=== PATIENT | male | born 1995 | race Caucasian/White ===

== ENCOUNTER 2023-11-03 20:01 | Emergency (ER) | payer BC, SELFPAY ==
[2023-11-03] VITALS (9 sets, daily range): BP systolic 121–164; BP diastolic 68–90; PULSE 85–110; RESP 20; TEMP 36.4; O2SAT 92–99; BMI 30.4
--- NOTE | 2023-11-03 20:10 | DI.RAD.S_ITS ---
PROCEDURE: XR FOREARM RT 2V INDICATIONS: fell and injured RUE TECHNIQUE: 2 views of the forearm were acquired. COMPARISON: None. FINDINGS: Bones: No fractures or dislocations. No suspicious bony lesions. Soft tissues: No suspicious soft tissue calcifications or masses. IMPRESSION: Right radius and ulna without definite fracture or dislocation. If there is persistent clinical concern for occult fracture given adequate mechanism of injury, consider repeat imaging in 10-14 days. Dictated by: Jostin Blair M.D. on 11/03/2023 at 21:16 Approved by: Jostin Blair M.D. on 11/03/2023 at 21:17
--- NOTE | 2023-11-03 20:10 | DI.RAD.S_ITS ---
PROCEDURE: XR HUMERUS RT 2V INDICATIONS: fell and injured RUE TECHNIQUE: 2 views of the humerus were acquired. COMPARISON: None. FINDINGS: Bones: No fractures or dislocations. No suspicious bony lesions. Soft tissues: No suspicious soft tissue calcifications. IMPRESSION: Right humerus without acute fracture or dislocation. If there is persistent clinical concern for occult fracture given adequate mechanism of injury, consider repeat imaging in 10-14 days. Dictated by: Jostin Blair M.D. on 11/03/2023 at 21:18 Approved by: Jostin Blair M.D. on 11/03/2023 at 21:19
--- NOTE | 2023-11-03 20:10 | DI.RAD.S_ITS ---
PROCEDURE: XR SHOULDER RT MIN 2V INDICATIONS: fell and injured RUE TECHNIQUE: 2 views of the shoulder were acquired. COMPARISON: None. FINDINGS: Bones: No fractures or dislocations. No suspicious bony lesions. Visualized ribs appear intact. Coracoclavicular and acromioclavicular intervals are maintained. Soft tissues: No suspicious soft tissue calcifications. IMPRESSION: No acute bony abnormality. If there is persistent clinical concern for occult fracture given adequate mechanism of injury, consider repeat imaging in 10-14 days. Dictated by: Jostin Blair M.D. on 11/03/2023 at 21:22 Approved by: Jostin Blair M.D. on 11/03/2023 at 21:23
--- NOTE | 2023-11-03 20:10 | DI.RAD.S_ITS ---
PROCEDURE: XR ELBOW RT MIN 3V INDICATIONS: fell and injured RUE TECHNIQUE: 3 views of the elbow were acquired. COMPARISON: None. FINDINGS: Bones: No fractures or dislocations. No suspicious bony lesions. Soft tissues: No elbow joint effusion. No suspicious soft tissue calcifications. IMPRESSION: No acute bony abnormality or significant joint effusion. If there is persistent clinical concern for occult fracture given adequate mechanism of injury, consider repeat imaging in 10-14 days. Dictated by: Jostin Blair M.D. on 11/03/2023 at 21:21 Approved by: Jostin Blair M.D. on 11/03/2023 at 21:22
--- NOTE | 2023-11-03 20:10 | DI.RAD.S_ITS ---
PROCEDURE: XR HAND RT MIN 3V INDICATIONS: fell and injured RUE TECHNIQUE: 3 views of the hand(s) acquired. COMPARISON: None. FINDINGS: Bones: No fractures or dislocations. Carpal bones are normally aligned. No suspicious bony lesions. Soft tissues: No suspicious soft tissue calcifications. IMPRESSION: No acute bony abnormality. If there is persistent clinical concern for occult fracture given adequate mechanism of injury, consider repeat imaging in 10-14 days. Dictated by: Jostin Blair M.D. on 11/03/2023 at 21:17 Approved by: Jostin Blair M.D. on 11/03/2023 at 21:18
--- NOTE | 2023-11-03 20:10 | DI.RAD.S_ITS ---
PROCEDURE: XR WRIST RT MIN 3V INDICATIONS: fell and injured RUE TECHNIQUE: 4 views of the wrist were acquired. COMPARISON: None. FINDINGS: Bones: No fractures or dislocations. No suspicious bony lesions. Scaphoid appears intact. Scapholunate interval is maintained. Soft tissues: No suspicious soft tissue calcifications. IMPRESSION: Right wrist without acute fracture or dislocation. If there is persistent clinical concern for occult fracture given adequate mechanism of injury, consider repeat imaging in 10-14 days. Dictated by: Jostin Blair M.D. on 11/03/2023 at 21:20 Approved by: Jostin Blair M.D. on 11/03/2023 at 21:21
--- NOTE | 2023-11-04 04:01 | ED_ITS ---
HPI - Extremity Injury (Upper) General Chief Complaint: Extremity Injury, Upper Stated Complaint: GLF Fall right side elbow and arm Time Seen by Provider: 11/03/23 20:48 Source: patient and family Mode of arrival: Ambulatory History of Present Illness HPI narrative: 28-year-old male with a right upper extremity injury after tripping while walking his dog. Fell onto the right arm, has pain in the right elbow wrist and hand, particularly with supination of the forearm. Injury occurred just prior to arrival. Related Data Home Medications Medication Instructions Recorded Confirmed No Known Home Medications 01/09/23 01/09/23 Allergies Allergy/AdvReac Type Severity Reaction Status Date / Time No Known Drug Allergies Allergy Unverified 01/09/23 14:05 Patient History Social History Smoking Status: Never smoker Smoking Status: Never smoker alcohol intake frequency: a few times a week Substance Use Type: does not use Exam Initial Vital Signs Initial Vital Signs: Vital Signs Temperature 97.5 F L 11/03/23 20:04 Pulse Rate 96 H 11/03/23 20:04 Respiratory Rate 20 11/03/23 20:04 Blood Pressure 164/75 H 11/03/23 20:04 Pulse Oximetry 98 11/03/23 20:04 Oxygen Delivery Method Room Air 11/03/23 20:04 Const General: No acute distress HENMT Head: normocephalic and atraumatic Resp Effort & Inspection: normal respiratory effort Skin General: no rashes or lesions noted Neuro General: patient awake and patient oriented x3 Extrem Other: Right upper extremity has tenderness at the elbow without palpable effusion the re is no deformity he has good active range of motion although flexion and supination cause pain. There is no deformity of the forearm, pulses are intact of the right wrist he has intact range of motion in the right wrist there is no tenderness in the snuffbox motor function in the hand is intact. Course Orders Ordered: ED Orders 11/03/23 20:10 XR elbow RT min 3V Stat XR forearm RT 2V Stat XR hand RT min 3V Stat XR humerus RT 2V Stat XR shoulder RT min 2V Stat XR wrist RT min 3V Stat Vital Signs Vital signs: Vital Signs - 8 hr 11/03/23 20:04 11/03/23 20:16 11/03/23 20:17 Temperature 97.5 F L Pulse Rate 96 H 110 H Pulse Rate [Right Radial] Respiratory Rate 20 Blood Pressure 164/75 H 154/90 H Pulse Oximetry 98 98 Oxygen Delivery Method Room Air 11/03/23 20:17 11/03/23 20:18 11/03/23 20:30 Temperature Pulse Rate 102 H 94 H Pulse Rate [Right Radial] 96 H Respiratory Rate Blood Pressure Pulse Oximetry 98 92 Oxygen Delivery Method 11/03/23 20:48 11/03/23 20:48 11/03/23 21:00 Temperature Pulse Rate 92 H 91 H Pulse Rate [Right Radial] Respiratory Rate Blood Pressure 128/85 Pulse Oximetry 99 97 Oxygen Delivery Method 11/03/23 21:00 11/03/23 21:30 11/03/23 21:30 Temperature Pulse Rate 89 Pulse Rate [Right Radial] Respiratory Rate Blood Pressure 121/68 123/73 Pulse Oximetry 97 Oxygen Delivery Method 11/03/23 22:00 11/03/23 22:00 Temperature Pulse Rate 85 Pulse Rate [Right Radial] Respiratory Rate Blood Pressure 122/69 Pulse Oximetry 97 Oxygen Delivery Method MDM - Extremity Injury (Upper) Imaging Data Extremity x-ray #1: My Impression: Independent review of right elbow x-rays, no joint effusion no fracture or dislocation Radiologist's Impression: No acute bony abnormality or significant joint effusion. Extremity x-ray #2: My Impression: Independent review of right wrist film, no fracture Radiologist's Impression: No fracture or dislocation Extremity x-ray #3: My Impression: X-rays were also obtained of the right shoulder, right humerus and right forearm, all these were independently reviewed no fracture seen Radiologist's Impression: No fractures or dislocation MDM Narrative Medical decision making narrative: 28-year-old man with right upper extremity pain after a ground level fall onto the right arm. Examination is reassuring, no bony abnormality is seen on x-ray. He was given a sling recommended use of ibuprofen and rest he is to follow up with primary care Discharge Plan Departure Patient Disposition: Home Clinical Impression: Elbow sprain Qualifiers: Encounter type: initial encounter Laterality: right Qualified Code(s): S53.401A - Unspecified sprain of right elbow, initial encounter Instructions: DI for Elbow Sprain Activity Restrictions/Additional Instructions: Emergency department evaluation tonight is reassuring. No fracture is seen, I think it is safe to go home, you can use the sling that was provided for comfort, be sure to get your arm out of this within about 3 days and doing gentle [id number] exercises in the shoulder. Do not do any heavy lifting or repetitive movements with your right arm. We use ibuprofen and/or acetaminophen as needed for pain at usual [id number] doses and frequencies. Follow up soon with her primary care provider for a recheck. Prescriptions: No Action No Known Home Medications Referrals: Miscellaneous,Doctor, [Primary Care Provider] - Stand Alone Forms: Patient Portal/API
== END 2023-11-03 22:27 | disposition home or self-care (01) ==
PROVIDERS: Emergency Provider Emergency Medicine
DX: S53.401A Unspecified sprain of right elbow, initial encounter (principal); M25.531 Pain in right wrist; M79.641 Pain in right hand; W01.0XXA Fall on same level from slipping, tripping and stumbling without subsequent striking against object, initial encounter; Y93.K1 Activity, walking an animal
CPT/HCPCS: 73030; 73060; 73080; 73090; 73110; 73130; 99283